=== PATIENT | female | born 1995 | race Caucasian/White ===

== ENCOUNTER 2019-03-16 09:32 | Emergency (ER) | payer OTHER ==
--- OUTSIDE RECORDS SUMMARY | 2019-03-16 09:34 | XMS REPORT ---
:1995 [facility] Address [address] Guo [address] [place] [id number] Care Team Providers Name Role Phone Unavailable Unavailable Unavailable Problems This patient has no known problems. Allergies, Adverse Reactions, Alerts This patient has no known allergies or adverse reactions. Medications This patient has no known medications. Encounters Start End Encounter Admission Attending Care Care Encounter Date/Time Date/Time Type Type Clinicians Facility Department ID 2019-01-06 Inpatient [facility] [id number] 06:39:00 2018-10-30 2018-10-30 Outpatient [id number] 06:23:00 06:23:00 2018-10-08 2018-10-08 Outpatient [facility] [id number] 08:21:00 08:21:00 2018-10-07 2018-10-07 Outpatient [facility]SE [facility]SE [id number] 09:43:00 09:43:00
[2019-03-16] MEDS ORDERED: NA CHLORIDE 0.9% 1,000 ML ONE ×2 (10:31→12:04)
[2019-03-16 10:40] LABS: Absolute Lymphocytes (CBC) 0.9 K/uL (0.7-4.9); Basophils % 0.5 % (0-1.3); Hematocrit 40.4 % (36.0-45.0); Lymphocytes % 10.6 % (15.3-44.8); MPV 9.9 fL (7.6-11.3); RBC Red Blood Cell Count 4.55 M/uL (3.86-4.86)
[2019-03-16] MEDS ORDERED: MORPHINE 4 MG/ML SYR ONE (10:48)
[2019-03-16] MEDS ORDERED: PROMETHAZINE 25 MG/ML VIAL ONE (10:48)
[2019-03-16 10:58] LABS: ALT/SGPT 17 U/L (12-78); AST/SGOT 12 U/L (15-37); Albumin 3.9 g/dL (3.4-5.0); Alkaline Phosphatase 69 U/L (45-117); BUN Blood Urea Nitrogen 8 mg/dL (7-18); Bicarbonate 24 mmol/L (21-32); Bilirubin Direct 0.1 mg/dL (0-0.2); Bilirubin Total 0.5 mg/dL (0.2-1.0); Glucose Level 112 mg/dL (74-106); Lipase 72 U/L (73-393); Potassium 3.2 mmol/L (3.5-5.1); Protein, Total 7.4 g/dL (6.4-8.2); Sodium Level 142 mmol/L (136-145)
[2019-03-16 11:19] LABS: Urine Blood 1+ (NEG); Urine Glucose NEGATIVE (NEG); Urine Protein TRACE (NEG); Urine pH 5.5 (5.0-7.0)
--- NOTE | 2019-03-16 11:27 | RAD REPORT ---
EXAM DESCRIPTION: CT - Stone Protocol - 03/16/2019 11:09 am CLINICAL HISTORY: Abdominal pain. Right lower quadrant pain COMPARISON: None. TECHNIQUE: Computed axial tomography of the abdomen pelvis was obtained without oral or IV contrast. Lack of IV and oral contrast limits evaluation of solid organs, bowel, and vessels. Coronal reformat jaiden images were obtained and reviewed. All CT scans are performed using dose optimization technique as appropriate and may include automated exposure control or mA/KV adjustment according to patient size. FINDINGS: A renal calculus is not seen. 1 millimeter calculus distal right ureter. Mild right hydron ephrosis The liver, spleen, pancreas and adrenals appear grossly normal There is no evidence of diverticulitis. The appendix appears normal IMPRESSION: 1 millimeter calculus distal right ureter resulting in mild right hydronephrosis
[2019-03-16] MEDS ORDERED: KETOROLAC 30 MG/ML INJ ONE (11:45)
[2019-03-16] MEDS ORDERED: MORPHINE 2 MG/ML SYR ONE (11:45)
[2019-03-16] MEDS ORDERED: KCL 20 MEQ/100 mL IVPB 20 MEQ/100 ML BAG IV ONE (12:04)
--- NOTE | 2019-03-16 12:34 | ER ---
Nurse's Notes [facility] Name: Aura Mcintyre Age: 24 yrs Sex: Female : 1995 Arrival Date: 03/16/2019 Time: 09:41 Bed 6 Private MD: Diagnosis: Hydronephrosis with renal and ureteral calculous obstruction;Dehydration;Hypokalemia Presentation: 03/16 09:56 Presenting complaint: Patient states: right lower back pain, nausea and vomiting since la1 early this morning. Transition of care: patient was not received from another setting of care. Onset of symptoms was March 16, 2019. Risk Assessment: Do you want to hurt yourself or someone else? Patient reports no desire to harm self or others. Initial Sepsis Screen: Does the patient meet any 2 criteria? No. Patient's initial sepsis screen is negative. Does the patient have a suspected source of infection? No. Patient's initial sepsis screen is negative. Care prior to arrival: None. 09:56 Method Of Arrival: Ambulatory la1 09:56 Acuity: SHEKHAR 3 la1 Triage Assessment: 09:58 General: Appears in no apparent distress. uncomfortable, Behavior is calm, cooperative, hj appropriate for age. Pain: Complains of pain in back. Musculoskeletal: Circulation, motion, and sensation intact. 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 - Social history:: Smoking status: Patient/guardian denies using tobacco. - Ebola Screening: : No symptoms or risks identified at this time. Screenin:58 Abuse screen: Denies threats or abuse. Denies injuries from another. Nutritional hj screening: No deficits noted. Tuberculosis screening: No symptoms or risk factors identified. Fall Risk None identified. Assessment: 12:37 Reassessment: awaiting fluids and Potassium IV to be done;. hj 13:16 Reassessment: fluids and potassium IV still running;. hj Vital Signs: 09:55 BP 143 / 77; Pulse 99; Resp 16; Temp 97.2; Pulse Ox 100% on R/A; Weight 88.45 kg; la1 Height 5 ft. 3 in. (160.02 cm); 11:01 BP 142 / 75; Pulse 98; Resp 18; Pulse Ox 100% on R/A; hj 12:08 BP 138 / 75; Pulse 85; Resp 18; Pulse Ox 100% on R/A; hj 09:55 Body Mass Index 34.54 (88.45 kg, 160.02 cm) la1 ED Course: 09:41 Patient arrived in ED. mr 09:48 Maryann Sharma, BILLY [facility]. snw 09:48 Gera Knight MD is Attending Physician. snw 09:55 Arm band placed on right wrist. la1 09:56 Triage completed. la1 09:58 Elmo Ramos, VISHNU is Primary Nurse. hj 09:58 Patient has correct armband on for positive identification. Bed in low position. Call hj light in reach. Side rails up X 1. Adult w/ patient. 11:10 CT completed. Patient tolerated procedure well. Patient moved back from CT. bq 11:11 CT Stone Protocol In Process Unspecified. EDMS 11:48 Inserted saline lock: 22 gauge in left antecubital area, using aseptic technique. hj Administered Medications: 10:30 Drug: NS 0.9% 1000 ml Route: IV; Rate: 1 bolus; Site: right antecubital; bp 13:18 Follow up: IV Status: Completed infusion; IV Intake: 1000ml hj 10:45 Drug: morphine 4 mg Route: IVP; Site: right antecubital; hj 10:57 Follow up: Response: No adverse reaction; Pain is decreased hj 10:45 Drug: Phenergan 6.25 mg Route: IVP; Site: right antecubital; hj 10:57 Follow up: Response: No adverse reaction hj 11:41 Drug: TORadol - Ketorolac 15 mg Route: IVP; Site: right antecubital; hj 13:18 Follow up: Response: No adverse reaction; Pain is decreased hj 11:41 Drug: morphine 2 mg Route: IVP; Site: right antecubital; hj 13:18 Follow up: Response: No adverse reaction hj 11:49 Drug: Potassium Chloride 20 mEq Route: IV; Rate: calculated rate; Site: left hj antecubital; 13:17 Follow up: IV Status: Infusion continued 11:49 Drug: NS 0.9% 1000 ml Route: IV; Rate: 1 bolus; Site: left antecubital; hj 13:17 Follow up: IV Status: Completed infusion; IV Intake: 1000ml hj Intake: 13:17 IV: 1000ml; Total: 1000ml. hj 13:18 IV: 1000ml; Total: 2000ml. hj Outcome: 12:33 Discharge ordered by . madi 14:01 Patient left the ED. hb Signatures: Dispatcher [employer] EDMS Maryann Sharma, SENIOR PARALEGAL-C SENIOR PARALEGAL-Csnw EduardoKavita mr Johny, Dheeraj Nix RN RN laElmo Whitlock RN RN hj Baxter, Heather, RN RN Layo Slaughter, RN RN bp
--- NOTE | 2019-03-16 12:35 | EDPHYS ---
Physician Documentation [facility] Name: Aura Mcintyre Age: 24 yrs Sex: Female : 1995 Arrival Date: 03/16/2019 Time: 09:41 Bed 6 Private MD: ED Physician Gera Knight HPI: 03/16 11:22 This 24 yrs old Female presents to ER via Ambulatory with complaints of snw Abdominal pain, Back Pain, Nausea. 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 - Social history:: Smoking status: Patient/guardian denies using tobacco. - Ebola Screening: : No symptoms or risks identified at this time. ROS: 11:21 Constitutional: Negative for fever, chills, and weight loss, Eyes: Negative for injury, snw pain, redness, and discharge, ENT: Negative for injury, pain, and discharge, Neck: Negative for injury, pain, and swelling, Cardiovascular: Negative for chest pain, palpitations, and edema, Respiratory: Negative for shortness of breath, cough, wheezing, and pleuritic chest pain, Abdomen/GI: Positive for abdominal pain, nausea, vomiting, negative for diarrhea, and constipation, Back: Negative for injury and pain, : Negative for injury, bleeding, discharge, and swelling, MS/Extremity: Negative for injury and deformity, Skin: Negative for injury, rash, and discoloration, Neuro: Negative for headache, weakness, numbness, tingling, and seizure. Exam: 11:19 Constitutional: This is a well developed, well nourished patient who is awake, alert, snw and in no acute distress. Head/Face: Normocephalic, atraumatic. Eyes: Pupils equal round and reactive to light, extra-ocular motions intact. Lids and lashes normal. Conjunctiva and sclera are non-icteric and not injected. Cornea within normal limits. Periorbital areas with no swelling, redness, or edema. ENT: Nares patent. No nasal discharge, no septal abnormalities noted. Tympanic membranes are normal and external auditory canals are clear. Oropharynx with no redness, swelling, or masses, exudates, or evidence of obstruction, uvula midline. Mucous membranes moist. Neck: Trachea midline, no thyromegaly or masses palpated, and no cervical lymphadenopathy. Supple, full range of motion without nuchal rigidity, or vertebral point tenderness. No Meningismus. Chest/axilla: Normal chest wall appearance and motion. Nontender with no deformity. No lesions are appreciated. Cardiovascular: Regular rate and rhythm with a normal S1 and S2. No gallops, murmurs, or rubs. Normal PMI, no JVD. No pulse deficits. Respiratory: Lungs have equal breath sounds bilaterally, clear to auscultation and percussion. No rales, rhonchi or wheezes noted. No increased work of breathing, no retractions or nasal flaring. Back: No spinal tenderness. No costovertebral tenderness. Full range of motion. MS/ Extremity: Pulses equal, no cyanosis. Neurovascular intact. Full, normal range of motion. Neuro: Awake and alert, GCS 15, oriented to person, place, time, and situation. Cranial nerves II-XII grossly intact. Motor strength 5/5 in all extremities. Sensory grossly intact. Cerebellar exam normal. Normal gait. Psych: Awake, alert, with orientation to person, place and time. Behavior, mood, and affect are within normal limits. 11:19 Abdomen/GI: Inspection: abdomen appears normal, Bowel sounds: diminished, Palpation: moderate abdominal tenderness, severe abdominal tenderness, in the right lower quadrant, Indicators: McBurney's point is tender, Obturator sign is positive, Psoas sign is positive. 11:19 Back: + radiated pain to right low back. 11:19 Neuro: Orientation: is normal. 11:19 Special observations: severe pain, tearful on exam. 11:21 Skin: Appearance: Color: pale. snw Vital Signs: 09:55 BP 143 / 77; Pulse 99; Resp 16; Temp 97.2; Pulse Ox 100% on R/A; Weight 88.45 kg; la1 Height 5 ft. 3 in. (160.02 cm); 11:01 BP 142 / 75; Pulse 98; Resp 18; Pulse Ox 100% on R/A; hj 12:08 BP 138 / 75; Pulse 85; Resp 18; Pulse Ox 100% on R/A; hj 09:55 Body Mass Index 34.54 (88.45 kg, 160.02 cm) la1 MDM: 09:57 Patient medically screened. az 12:34 Data reviewed: vital signs, nurses notes. Data interpreted: Pulse oximetry: on room air snw is 100 %. Interpretation: normal. Counseling: I had a detailed discussion with the patient and/or guardian regarding: the historical points, exam findings, and any diagnostic results supporting the discharge/admit diagnosis, the presence of at least one elevated blood pressure reading (>120/80) during this emergency department visit, lab results, radiology results, the need for outpatient follow up, to return to the emergency department if symptoms worsen or persist or if there are any questions or concerns that arise at home. Special discussion: I have referred the patient to see his PCP for further evaluation of high blood pressure. Based on the history and exam findings, there is no indication for further emergent testing or inpatient evaluation. I discussed with the patient/guardian the need to see the primary care provider for further evaluation of the symptoms. I discussed with the patient/guardian the need to see the urologist for further evaluation of the symptoms. 14:26 ED course: T#3 #20 called to [facility] as pt cannot take Diclofenac. 03/16 10:17 Order name: Urine Culture 03/16 10:17 Order name: Urine Microscopic Only; Complete Time: 13:31 formerly [facility] 03/16 10:18 Order name: Urine Dipstick--Ancillary (enter results); Complete Time: 11:24 03/16 10:18 Order name: Urine --Ancillary (enter results); Complete Time: 11:24 03/16 10:21 Order name: Basic Metabolic Panel; Complete Time: 11: formerly [facility] 03/16 10:21 Order name: CBC with Diff 03/16 10:21 Order name: Creatinine for Radiology; Complete Time: 10:56 formerly [facility] 03/16 10:21 Order name: Hepatic Function; Complete Time: 11: formerly [facility] 03/16 10:21 Order name: Lipase; Complete Time: 11: formerly [facility] 03/16 10:44 Order name: CT Stone Protocol; Complete Time: 11:40 formerly [facility] 03/16 10:17 Order name: Urine Test (obtain specimen); Complete Time: 10:w 03/16 10:17 Order name: Urine Dipstick-Ancillary (obtain specimen); Complete Time: 10:03/16 10:21 Order name: IV Saline Lock; Complete Time: 03/16 10:21 Order name: Labs collected and sent; Complete Time: 10: snw Administered Medications: 10:30 Drug: NS 0.9% 1000 ml Route: IV; Rate: 1 bolus; Site: right antecubital; bp 13:18 Follow up: IV Status: Completed infusion; IV Intake: 1000ml hj 10:45 Drug: morphine 4 mg Route: IVP; Site: right antecubital; hj 10:57 Follow up: Response: No adverse reaction; Pain is decreased hj 10:45 Drug: Phenergan 6.25 mg Route: IVP; Site: right antecubital; hj 10:57 Follow up: Response: No adverse reaction hj 11:41 Drug: TORadol - Ketorolac 15 mg Route: IVP; Site: right antecubital; hj 13:18 Follow up: Response: No adverse reaction; Pain is decreased hj 11:41 Drug: morphine 2 mg Route: IVP; Site: right antecubital; hj 13:18 Follow up: Response: No adverse reaction hj 11:49 Drug: Potassium Chloride 20 mEq Route: IV; Rate: calculated rate; Site: left hj antecubital; 13:17 Follow up: IV Status: Infusion continued hj 11:49 Drug: NS 0.9% 1000 ml Route: IV; Rate: 1 bolus; Site: left antecubital; hj 13:17 Follow up: IV Status: Completed infusion; IV Intake: 1000ml hj Disposition: 03/17 09:20 Co-signature as Attending Physician, Gera LOPEZ I agree with the assessment and az plan of care. Disposition: 03/16/19 12:33 Discharged to Home. Impression: Hydronephrosis with renal and ureteral calculous obstruction, Dehydration, Hypokalemia. - Condition is Stable. - Discharge Instructions: Kidney Stones, Hydronephrosis, Dietary Guidelines to Help Prevent Kidney Stones, Rehydration, Adult. - Prescriptions for Cipro 500 mg Oral Tablet - take 1 tablet by ORAL route every 12 hours for 7 days; 14 tablet. Diclofenac Sodium 75 mg Oral Tablet Sustained Release - take 1 tablet by ORAL route 2 times per day; 30 tablet. promethazine 25 mg Oral Tablet - take 1 tablet by ORAL route every 6 hours As needed; 20 tablet. - Work release form, Medication Reconciliation Form, Thank You Letter, Antibiotic Education, Prescription Opioid Use form. - Follow up: Private Physician; When: 2 - 3 days; Reason: Recheck today's complaints, Continuance of care, Re-evaluation by your physician. Follow up: Emergency Department; When: As needed; Reason: Worsening of condition. Signatures: Dispatcher [employer] EDMS Gera Knight MD MD cha Therrien, Shelly, ORAL AND MAXILLOFACIAL SURGERY RESIDENT-C ORAL AND MAXILLOFACIAL SURGERY RESIDENT-Csnw Dheeraj Pacheco RN RN la1 Elmo Ramos RN RN hj Garima Sanchez RN RN Layo Slaughter RN RN bp Corrections: (The following items were deleted from the chart) 03/16 14:01 12:33 03/16/2019 12:33 Discharged to Home. Impression: Hydronephrosis with renal and hb ureteral calculous obstruction; Dehydration; Hypokalemia. Condition is Stable. Discharge Instructions: Kidney Stones, Hydronephrosis, Dietary Guidelines to Help Prevent Kidney Stones, Rehydration, Adult. Prescriptions for Cipro 500 mg Oral Tablet - take 1 tablet by ORAL route every 12 hours for 7 days; 14 tablet, Diclofenac Sodium 75 mg Oral Tablet Sustained Release - take 1 tablet by ORAL route 2 times per day; 30 tablet, promethazine 25 mg Oral Tablet - take 1 tablet by ORAL route every 6 hours As needed; 20 tablet. and Forms are Work release form, Medication Reconciliation Form, Thank You Letter, Antibiotic Education, Prescription Opioid Use. Follow up: Private Physician; When: 2 - 3 days; Reason: Recheck today's complaints, Continuance of care, Re-evaluation by your physician. Follow up: Emergency Department; When: As needed; Reason: Worsening of condition. snw
[2019-03-16 13:25] LABS: Urine Bacteria <20 /HPF (<20); Urine Culture Reflex Order NOT NEEDED; Urine Mucus 1+ /HPF (NONE SEEN)
[2019-03-16 14:25] VITALS: TEMP 97.2; O2SAT 100
[2019-03-16 14:27] VITALS: BP 138/75
== END 2019-03-16 14:01 | disposition home or self-care (01) ==
LOC: ER 09:32
DX: N13.2 Hydronephrosis with renal and ureteral calculous obstruction (principal); E86.0 Dehydration; E87.6 Hypokalemia; Z88.0 Allergy status to penicillin
CPT/HCPCS: 96365; 96361; 87088; 85025; 87086; 80048; 36415; 81025; 80076; 83690; 76377; 74176; 96375; 99284; J2550; J2270; J7030 ×2; 81003; 81015

== ENCOUNTER 2022-08-30 19:23 | Emergency (ER) | payer OTHER, SELFPAY ==
--- OUTSIDE RECORDS SUMMARY | 2022-08-30 19:32 | XMS REPORT | Continuity of Care Document ---
:1995 Author Organization [facility] t Address [facility] Guo [address] [place] [id number] Care Team Providers Name Role Phone Unavailable Unavailable Unavailable Problems This patient has no known problems. Allergies, Adverse Reactions, Alerts This patient has no known allergies or adverse reactions. Medications This patient has no known medications. Procedures This patient has no known procedures. Encounters Start End Encounter Admission Attending Care Care Encounter Source Date/Time Date/Time Type Type Clinicians Facility Department ID 2019-01-06 Inpatient [id number] [facility] [facility] 2018-10-30 2018-10-30 Outpatient MHSE [facility]SE [id number] MH 06:23:00 06:23:[address] [facility] 2018-10-08 2018-10-08 Outpatient MHSE [facility]SE [id number] MH 08:21:00 08:21:[address] [facility] 2018-10-07 2018-10-07 Outpatient [facility]SE [facility] [id number] [facility] Results This patient has no known results.
[2022-08-30] MEDS ORDERED: LEVALBUTEROL 1.25 MG/3 ML NEB ONE (20:04)
[2022-08-30] MEDS ORDERED: METHYLPREDNISOLONE 125 MG INJ ONE (20:04)
[2022-08-30] MEDS ORDERED: NA CHLORIDE 0.9% 1,000 ML ONE (20:26)
[2022-08-30 20:29] LABS: Absolute Lymphocytes (CBC) 1.9 K/uL (0.7-4.9); Hematocrit 39.7 % (36.0-45.0); Lymphocytes % 21.8 % (15.3-44.8); MCV 89.8 fL (80-100); MPV 7.7 fL (7.6-11.3); RBC Red Blood Cell Count 4.43 M/uL (3.86-4.86)
[2022-08-30 20:32] LABS: Urine Blood Negative (Negative); Urine Glucose Negative (Negative); Urine Protein Negative (Negative); Urine Specific Gravity 1.015 (1.005-1.030)
[2022-08-30 20:48] LABS: BUN Blood Urea Nitrogen 14 mg/dL (7-18); Bicarbonate 28 mmol/L (21-32); Glomerular Filtration Rate 104 ml/min (=/>90); Glucose Level 105 mg/dL (74-106); Potassium 4.1 mmol/L (3.5-5.1); Sodium Level 138 mmol/L (136-145)
[2022-08-30 21:18] LABS: Troponin High Sensitivity < 3.0 pg/mL (<58.9)
--- NOTE | 2022-08-30 21:19 | RAD REPORT ---
EXAM DESCRIPTION: RAD - Chest Single View - 08/30/2022 8:46 pm CLINICAL HISTORY: Chest pain COMPARISON: CHEST PA AND LAT 2 VIEW dated 02/18/2014; CHEST PA AND LAT 2 VIEW dated 04/09/2012 FINDINGS: Lines: None. Lungs: No evidence of edema or pneumonia. Pleural: No significant pleural effusions or pneumothorax. Cardiac: The heart size is within normal limits. Mediastinum: Within normal limits. Bones: No acute fractures. Other: None IMPRESSION: No acute cardiopulmonary disease.
[2022-08-30 22:07] LABS: Urine Specific Gravity/Preg 1.015 (1.005-1.030)
--- NOTE | 2022-08-30 23:14 | EDPHYS ---
Physician Documentation [facility] Name: Aura Mcintyre Age: 27 yrs Sex: Female : 1995 Arrival Date: 08/30/2022 Time: 19:27 Bed 6 Private MD: ED Physician Surya Camacho HPI: 08/31 00:17 This 27 yrs old Female presents to ER via Ambulatory with complaints of Chest Pain, kdr Cough, Palpitations. 00:17 Patient states that she has had cough congestion palpitations and generalized anxiety. kdr She has had the symptoms for some months. She was put on propranolol for rate control and palpitations however has not seem to work well. She her dosing was 10 mg twice daily. She is also has some minor skin lesions behind her right ear and under her chin. They do appear to be slightly crusty most likely a fungal type infection.. Onset: The symptoms/episode began/occurred The palpitations cough and congestion have been ongoing for some time. There does not appear to be any acute change in the character or quality or quantity of the palpitations. On the other hand they simply appear to be transient and not resolving and not controlled. The patient otherwise has no focal complaints. Does not appear to be acutely ill. She does not require emergent intervention and is not completely nontoxic-appearing. Severity of symptoms: At their worst the symptoms were mild moderate just prior to arrival, in the emergency department the symptoms have improved moderately. The patient has experienced similar episodes in the past, chronically. The patient has been recently seen by a physician: Patient has had intermittent visits with her PCP and is on numerous psychiatric medications as well as the propranolol previously mentioned. 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 - Social history:: Smoking status: Patient denies any tobacco usage or history of. ROS: 08/31 00:17 Constitutional: Negative for fever, chills, and weight loss, Eyes: Negative for injury, kdr pain, redness, and discharge, Neck: Negative for injury, pain, and swelling, Abdomen/GI: Negative for abdominal pain, nausea, vomiting, diarrhea, and constipation, Back: Negative for injury and pain, : Negative for injury, bleeding, discharge, and swelling, MS/Extremity: Negative for injury and deformity, Skin: Negative for injury, rash, and discoloration, Neuro: Negative for headache, weakness, numbness, tingling, and seizure activity. Psych: Negative for depression, anxiety, suicide ideation, homicidal ideation, and hallucinations, Allergy/Immunology: Negative for hives, rash, and allergies, Endocrine: Negative for neck swelling, polydipsia, polyuria, polyphagia, and marked weight changes, Hematologic/Lymphatic: Negative for swollen nodes, abnormal bleeding, and unusual bruising. Cardiovascular: Positive for chest pain, with cough, palpitations. Respiratory: Positive for cough, with no reported sputum, shortness of breath, Negative for dyspnea on exertion, hemoptysis, orthopnea, pleurisy, sputum production, wheezing. Exam: 00:17 Constitutional: This is a well developed, well nourished patient who is awake, alert, kdr and in no acute distress. Head/Face: Normocephalic, atraumatic. Eyes: Pupils equal round and reactive to light, extra-ocular motions intact. Lids and lashes normal. Conjunctiva and sclera are non-icteric and not injected. Cornea within normal limits. Periorbital areas with no swelling, redness, or edema. Neck: Trachea midline, no thyromegaly or masses palpated, and no cervical lymphadenopathy. Supple, full range of motion without nuchal rigidity, or vertebral point tenderness. No Meningismus. Chest/axilla: Normal chest wall appearance and motion. Nontender with no deformity. No lesions are appreciated. Cardiovascular: Regular rate and rhythm with a normal S1 and S2. No gallops, murmurs, or rubs. Normal PMI, no JVD. No pulse deficits. Respiratory: Lungs have equal breath sounds bilaterally, clear to auscultation and percussion. No rales, rhonchi or wheezes noted. No increased work of breathing, no retractions or nasal flaring. Abdomen/GI: Soft, non-tender, with normal bowel sounds. No distension or tympany. No guarding or rebound. No evidence of tenderness throughout. Back: No spinal tenderness. No costovertebral tenderness. Full range of motion. MS/ Extremity: Pulses equal, no cyanosis. Neurovascular intact. Full, normal range of motion. Neuro: Awake and alert, GCS 15, oriented to person, place, time, and situation. Cranial nerves II-XII grossly intact. Motor strength 5/5 in all extremities. Sensory grossly intact. Cerebellar exam normal. Normal gait. Psych: Awake, alert, with orientation to person, place and time. Behavior, mood, and affect are within normal limits. 00:17 Skin: lesion(s), noted, and can be described as erythematous, flat, tender, ulcerated, violaceous, located on the right ear and submental area. Vital Signs: 08/30 20:03 BP 110 / 74; Pulse 96; Resp 19; Temp 98.2; Pulse Ox 98% ; Weight 77.11 kg; Height 5 ft. kd3 3 in. (160.02 cm); 23:00 BP 114 / 71; Pulse 80; Resp 16; Pulse Ox 100% on R/A; jb4 20:03 Body Mass Index 30.11 (77.11 kg, 160.02 cm) 3 MDM: 23:13 Patient medically screened. kdr 08/31 00:17 Data reviewed: vital signs, nurses notes, lab test result(s), EKG, radiologic studies. kdr Consideration of Admission/Observation Patient was admitted/placed on observation. 08/30 20:10 Order name: Basic Metabolic Panel [facility] 08/30 20:10 Order name: CBC with Diff [facility] 08/30 20:10 Order name: Troponin HS [facility] 08/30 20:30 Order name: CBC with Automated Diff; Complete Time: 22: [facility] 08/30 20:32 Order name: Urine --Ancillary (enter results); Complete Time: 22: 08/30 20:32 Order name: Urine Dipstick-Ancillary; Complete Time: 22:09 [facility] 08/30 20:10 Order name: XRAY Chest (1 view) [facility] 08/30 20:10 Order name: EKG; Complete Time: 20:11 [facility] 08/30 21:19 Order name: Basic Metabolic Panel; Complete Time: 22:09 [facility] 08/30 21:19 Order name: Troponin High Sensitivity; Complete Time: 22: [facility] 08/30 21:20 Order name: RAD; Complete Time: 22: [facility] 08/30 20:09 Order name: EKG - Nurse/Tech; Complete Time: 20:09 [facility] 08/30 20:10 Order name: Cardiac monitoring; Complete Time: 23:14 3 08/30 20:10 Order name: IV Saline Lock; Complete Time: 20:20 3 08/30 20:10 Order name: Labs collected and sent; Complete Time: 20:20 3 08/30 20:10 Order name: O2 Per Protocol; Complete Time: 23: 3 08/30 20:10 Order name: O2 Sat Monitoring; Complete Time: 23:14 3 08/30 20:23 Order name: Urine Dipstick-Ancillary (obtain specimen); Complete Time: :47 3 08/30 20:23 Order name: Urine Test (obtain specimen); Complete Time: :47 kd3 Administered Medications: 08/30 20:24 Drug: NS 0.9% 1000 ml Route: IV; Rate: 1 bolus; Site: right antecubital; kd3 21:51 Follow up: IV Status: Completed infusion; IV Intake: 1000ml kd3 23:36 Drug: INDeral (propranolol) 20 mg Route: PO; jb4 23:39 Follow up: Response: Medication administered at discharge. jb4 Disposition Summary: 08/30/22 23:13 Discharge Ordered Location: Home kdr Problem: new kdr Symptoms: have improved kdr Condition: Stable kdr Diagnosis - Palpitations kdr - Anxiety disorder, unspecified kdr - Chest pain, unspecified kdr Followup: kdr - With: Private Physician - When: 2 - 3 days - Reason: If symptoms return, Further diagnostic work-up, Recheck today's complaints, Continuance of care, Re-evaluation by your physician Discharge Instructions: - Discharge Summary Sheet kdr - Nonspecific Chest Pain, Adult kdr - Nonspecific Chest Pain, Adult, Goin-wy-[id number] kdr - Panic Attack, Vjls-qg-Qenq kdr - Palpitations, Jffa-aq-Sjzi kdr - Generalized Anxiety Disorder, Adult kdr - Managing Anxiety, Adult kdr Forms: - Medication Reconciliation Form kdr - Thank You Letter kdr - Antibiotic Education kdr - Prescription Opioid Use kdr Prescriptions: - Propranolol 20 mg Oral Tablet - take 1 tablet by ORAL route every 12 hours; 20 tablet; Refills: 0, Product kdr Selection Permitted - Nystatin-Triamcinolone 100,000-0.1 unit/g-% Topical Cream - apply 1 application by TOPICAL route 2 times per day; 1 tube; Refills: 0, kdr Product Selection Permitted Signatures: Dispatcher [employer] Surya Simons MD MD kdr Mckinley Chavez, RN RN jb4 Kennedi Bailey RN RN kd3 Corrections: (The following items were deleted from the chart) 22:09 21:48 URINE --ANCILLARY+[email or web address].BRZ ordered. EDMS EDMS
--- NOTE | 2022-08-30 23:14 | ER ---
Nurse's Notes [facility] Name: Aura Mcintyre Age: 27 yrs Sex: Female : 1995 Arrival Date: 08/30/2022 Time: 19:27 Bed 6 Private MD: Diagnosis: Palpitations;Anxiety disorder, unspecified;Chest pain, unspecified Presentation: 08/30 20:03 Chief complaint: Patient states: I was having some deep chest pain and i have been kd3 coughing a lot and i have had little pink spots in my sputum. I know i have a lot of anxiety and i know that it could just be that but the little pink spots make me think it is something else. I also haven't had a solid bowl movement in over a month. I do have a history of IBS and my doctor thinks its due to my stress but i feel very weak. Coronavirus screen: Vaccine status: Patient reports being unvaccinated. Ebola Screen: No symptoms or risks identified at this time. Initial Sepsis Screen: Does the patient meet any 2 criteria? No. Patient's initial sepsis screen is negative. Does the patient have a suspected source of infection? No. Patient's initial sepsis screen is negative. Risk Assessment: Do you want to hurt yourself or someone else? Patient reports no desire to harm self or others. Onset of symptoms was August 30, 2022. 20:03 Method Of Arrival: Ambulatory kd3 20:03 Acuity: SHEKHAR 3 kd3 Triage Assessment: 20:06 General: Appears uncomfortable, Behavior is calm, cooperative. Pain: Complains of pain kd3 in chest. Cardiovascular: Patient's skin is warm and dry. 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 - Social history:: Smoking status: Patient denies any tobacco usage or history of. Screenin:39 [facility] ED Fall Risk Assessment (Adult) History of falling in the last 3 months, jb4 including since admission No falls in past 3 months (0 pts) Confusion or Disorientation No (0 pts) Score/Fall Risk Level 0 - 2 = Low Risk. Abuse screen: Denies threats or abuse. Nutritional screening: No deficits noted. Tuberculosis screening: No symptoms or risk factors identified. Assessment: 22:45 General: Appears in no apparent distress. comfortable, Behavior is calm, cooperative, jb4 appropriate for age. Pain: Complains of pain in chest Pain does not radiate. Pain currently is 4 out of 10 on a pain scale. Quality of pain is described as aching. Neuro: Level of Consciousness is awake, alert, obeys commands, Oriented to person, place, time, situation. Cardiovascular: Patient's skin is warm and dry. Respiratory: Reports cough that is persistent since 1 month ago Airway is patent Respiratory effort is even, unlabored. GI: No signs and/or symptoms were reported involving the gastrointestinal system. : No signs and/or symptoms were reported regarding the genitourinary system. EENT: No signs and/or symptoms were reported regarding the EENT system. Derm: Skin is intact, Skin is pink, warm \T\ dry. Musculoskeletal: Circulation, motion, and sensation intact. Range of motion: intact in all extremities. 23:39 Reassessment: Patient appears in no apparent distress at this time. Patient and/or jb4 family updated on plan of care and expected duration. Pain level reassessed. Patient is alert, oriented x 3, equal unlabored respirations, skin warm/dry/pink. Vital Signs: 20:03 BP 110 / 74; Pulse 96; Resp 19; Temp 98.2; Pulse Ox 98% ; Weight 77.11 kg; Height 5 ft. kd3 3 in. (160.02 cm); 23:00 BP 114 / 71; Pulse 80; Resp 16; Pulse Ox 100% on R/A; jb4 20:03 Body Mass Index 30.11 (77.11 kg, 160.02 cm) kd3 ED Course: 19:27 Patient arrived in ED. rg4 19:31 Surya Camacho MD is Attending Physician. kdr 20:06 Triage completed. kd3 20:06 Arm band placed on right wrist. kd3 20:09 EKG completed in triage. Results shown to MD. kd3 20:20 Basic Metabolic Panel Sent. kd3 20:20 CBC with Diff Sent. kd3 20:20 Troponin HS Sent. kd3 21:04 Inserted saline lock: 20 gauge in right antecubital area, using aseptic technique. kd3 Blood collected. 22:45 Mckinley Chavez, RN is Primary Nurse. jb4 23:39 Patient has correct armband on for positive identification. Placed in gown. Bed in low jb4 position. Call light in reach. Side rails up X 1. Client placed on continuous cardiac and pulse oximetry monitoring. NIBP monitoring applied. 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 23:39 No provider procedures requiring assistance completed. IV discontinued, intact, jb4 bleeding controlled, No redness/swelling at site. Pressure dressing applied. Patient maintains SpO2 saturation greater than 95% on room air. Administered Medications: 20:24 Drug: NS 0.9% 1000 ml Route: IV; Rate: 1 bolus; Site: right antecubital; kd3 21:51 Follow up: IV Status: Completed infusion; IV Intake: 1000ml kd3 23:36 Drug: INDeral (propranolol) 20 mg Route: PO; jb4 23:39 Follow up: Response: Medication administered at discharge. jb4 Intake: 21:51 IV: 1000ml; Total: 1000ml. kd3 Outcome: 23:13 Discharge ordered by . kdr 23:39 Discharged to home ambulatory. jb4 23:39 Condition: stable 23:39 Discharge instructions given to patient, Instructed on discharge instructions, follow up and referral plans. medication usage, Demonstrated understanding of instructions, follow-up care, medications, Prescriptions given X 2. 23:40 Patient left the ED. jb4 Signatures: Surya Camacho MD MD kdr Garcia, Rubi 4 Mckinley Chavez, RN RN jb4 Kennedi Bailey RN RN kd3
[2022-08-30] MEDS ORDERED: PROPRANOLOL HCL 10 MG TAB ONE (23:35)
[2022-08-31 00:45] VITALS: TEMP 97.8
[2022-08-31 00:48] VITALS: BP 127/72; O2SAT 99
--- NOTE | 2022-08-31 11:52 | EKG ---
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
== END 2022-08-30 23:40 | disposition home or self-care (01) ==
LOC: ER 19:23
DX: R07.9 Chest pain, unspecified (principal); F41.9 Anxiety disorder, unspecified; R00.2 Palpitations
CPT/HCPCS: 36415; 71045; 80048; 81003; 81025; 84484; 85025; 93005; J2930; J7030; J7614

== ENCOUNTER 2023-05-25 23:11 | Emergency (ER) | payer OTHER, SELFPAY ==
--- OUTSIDE RECORDS SUMMARY | 2023-05-25 23:14 | XMS REPORT | Continuity of Care Document ---
:1995 Author Organization [facility] t Address [address] [facility] [address] [place] [id number] Care Team Providers Name Role Phone [email or web address] Attending Clinician Unavailable [email or web address] Admitting Clinician Unavailable Problems This patient has no known problems. Allergies, Adverse Reactions, Alerts This patient has no known allergies or adverse reactions. Medications This patient has no known medications. Procedures This patient has no known procedures. Encounters Start End Encounter Admission Attending Care Care Encounter Source Date/Time Date/Time Type Type Clinicians Facility Department ID 2019-01-06 Inpatient MHSE [id number] [facility] 06:39:[address] [facility] 2023-05-11 2023-05-11 Outpatient [email or web address] PRIV PRIV [id number] [facility] 00:00:00 00:00:00 [facility] [id number] Medic al 2018-10-30 2018-10-30 Outpatient MHSE [id number] [facility] 06:23:00 06:23:[address] [facility] 2018-10-08 2018-10-08 Outpatient MHSE [id number] MH 08:21:00 08:21:[address] [facility] 2018-10-07 2018-10-07 Outpatient MHSE [id number] [facility] 09:43:[facility] Results This patient has no known results.
[2023-05-26 00:40] LABS: Absolute Lymphocytes (CBC) 2.6 K/uL (0.7-4.9); Hematocrit 43.6 % (36.0-45.0); Lymphocytes % 21.8 % (15.3-44.8); MCV 88.1 fL (80-100); MPV 8.1 fL (7.6-11.3); Platelets 307 thou/uL (152-406); RBC Red Blood Cell Count 4.95 M/uL (3.86-4.86)
[2023-05-26] MEDS ORDERED: NA CHLORIDE 0.9% 1,000 ML ONE (00:57)
[2023-05-26] MEDS ORDERED: KETOROLAC 30 MG/ML INJ ONE (00:57)
[2023-05-26] MEDS ORDERED: ONDANSETRON 4 MG/2 ML VIAL ONE (00:57)
[2023-05-26] MEDS ORDERED: FAMOTIDINE 20 MG/2 ML VIAL IV ONE (00:57)
[2023-05-26 00:58] LABS: Albumin 3.8 g/dL (3.4-5.0); Bilirubin Total 0.3 mg/dL (0.2-1.0); Protein, Total 7.6 g/dL (6.4-8.2)
[2023-05-26] MEDS ORDERED: MORPHINE 4 MG/ML SYR ONE (04:30)
--- NOTE | 2023-05-26 06:30 | ER ---
Nurse's Notes [facility] Name: Aura Mcintyre Age: 28 yrs Sex: Female : 1995 Arrival Date: 05/25/2023 Time: 23:11 Bed 14 Private MD: Diagnosis: Abdominal pain, unspecified Presentation: 05/26 00:02 Chief complaint: Patient states: Been having stomach pain for the last 2 weeks but vc1 today it is really bad. Coronavirus screen: Vaccine status: Patient reports being unvaccinated. Client denies travel out of the [place] in the last 14 days. nausea, vomiting. Client presents with at least one sign or symptom that may indicate coronavirus-19. Ebola Screen: Patient negative for fever greater than or equal to 101.5 degrees Fahrenheit, and additional compatible Ebola Virus Disease symptoms Patient denies exposure to infectious person. Patient denies travel to an Ebola-affected area in the 21 days before illness onset. No symptoms or risks identified at this time. Initial Sepsis Screen: Does the patient meet any 2 criteria? No. Patient's initial sepsis screen is negative. Does the patient have a suspected source of infection? No. Patient's initial sepsis screen is negative. Risk Assessment: Do you want to hurt yourself or someone else? Patient reports no desire to harm self or others. Onset of symptoms is unknown. 00:02 Method Of Arrival: Ambulatory vc1 00:02 Acuity: SHEKHAR 3 vc1 Triage Assessment: 00:04 General: Appears in no apparent distress. uncomfortable, ill, Behavior is cooperative, vc1 crying. Pain: Complains of pain in abdomen Pain does not radiate. Pain currently is 10 out of 10 on a pain scale. Noted to be crying, grimacing, Also complains of nausea. EENT: No deficits noted. No signs and/or symptoms were reported regarding the EENT system. Neuro: No deficits noted. Cardiovascular: No deficits noted. Respiratory: Airway is patent Respiratory effort is even, unlabored, Respiratory pattern is regular, symmetrical. GI: Reports lower abdominal pain, upper abdominal pain, nausea, vomiting. : No deficits noted. No signs and/or symptoms were reported regarding the genitourinary system. Derm: No deficits noted. No signs and/or symptoms reported regarding the dermatologic system. Musculoskeletal: No deficits noted. No signs and/or symptoms reported regarding the musculoskeletal system. 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 - Social history:: Smoking status: Patient denies any tobacco usage or history of. Screenin:41 [facility] ED Fall Risk Assessment (Adult) History of falling in the last 3 months, vc1 including since admission No falls in past 3 months (0 pts) Confusion or Disorientation No (0 pts) Intoxicated or Sedated No (0 pts) Impaired Gait No (0 pts) Mobility Assist Device Used No (0 pt) Altered Elimination No (0 pt) Score/Fall Risk Level 0 - 2 = Low Risk Oriented to surroundings, Maintained a safe environment, Educated pt \T\ family on fall prevention, incl call for assistance when getting out of bed. Abuse screen: Denies threats or abuse. Nutritional screening: No deficits noted. Tuberculosis screening: No symptoms or risk factors identified. Assessment: 02:00 Reassessment: No changes from previously documented assessment. Patient and/or family vc1 updated on plan of care and expected duration. Pain level reassessed. Patient is alert, oriented x 3, equal unlabored respirations, skin warm/dry/pink. 04:33 Reassessment: Patient and/or family updated on plan of care and expected duration. Pain vc1 level reassessed. Patient is alert, oriented x 3, equal unlabored respirations, skin warm/dry/pink. Patient states symptoms have improved. 05:00 Reassessment: Patient and/or family updated on plan of care and expected duration. Pain ha1 level reassessed. Patient is alert, oriented x 3, equal unlabored respirations, skin warm/dry/pink. 06:00 Reassessment: Patient and/or family updated on plan of care and expected duration. Pain ha1 level reassessed. Patient is alert, oriented x 3, equal unlabored respirations, skin warm/dry/pink. 07:01 Reassessment: Discharge pending UA results. mb9 Vital Signs: 00:02 BP 153 / 102; Pulse 107; Resp 20; Temp 98.4; Pulse Ox 100% ; Weight 86.18 kg; Height 5 vc1 ft. 3 in. ; Pain 10/10; 02:00 BP 111 / 73; Pulse 84; Pulse Ox 98% ; vc1 04:00 BP 111 / 77; Pulse 81; Pulse Ox 100% ; vc1 04:30 BP 117 / 77; Pulse 81; Resp 18 S; Pulse Ox 100% on R/A; ha1 06:00 BP 105 / 64; Pulse 85; Resp 18 S; Pulse Ox 100% on R/A; ha1 00:02 Body Mass Index 33.66 (86.18 kg, 160.02 cm) vc1 00:02 Pain Scale: Adult vc1 ED Course: 05/25 23:16 Patient arrived in ED. gm2 05/26 00:02 Gera Naranjo PA is PHCP. cp 00:02 Cassie Rothman is Attending Physician. cp 00:03 Triage completed. vc1 00:04 Arm band placed on right wrist. EKG completed in triage. Results shown to MD. vc1 00:35 Inserted saline lock: 20 gauge in right antecubital area, using aseptic technique. kmf Blood collected. 00:46 CMP Sent. kmf 00:46 Lipase Sent. kmf 01:21 Radiology exam delayed due to test not completed at this time. eh4 02:00 Patient has correct armband on for positive identification. Bed in low position. Call vc1 light in reach. Pulse ox on. NIBP on. 03:02 CT Abd/Pelvis - IV Contrast Only In Process Unspecified. EDMS 04:31 Orly Mijares, VISHNU is Primary Nurse. vc1 06:29 No provider procedures requiring assistance completed. ha1 07:01 Report received from VISHNU Smith. mb9 07:16 IV discontinued, intact, bleeding controlled, No redness/swelling at site. Pressure vc1 dressing applied. Administered Medications: 00:50 Drug: NS 0.9% IV 1000 ml IV at 1 bolus Per protocol; 1000 mL bolus Route: IV; Rate: 1 vc1 bolus; Site: right antecubital; 06:29 Follow up: Response: No adverse reaction; IV Status: Completed infusion; IV Intake: ha1 1000ml 00:50 Drug: Famotidine IVP 20 mg IVP once; dilute with 10 mL 0.9% NaCl; give over 2 minutes vc1 Route: IVP; Site: right antecubital; 06:29 Follow up: Response: No adverse reaction ha1 00:50 Drug: TORadol - Ketorolac IVP 15 mg IVP once Route: IVP; Site: right antecubital; vc1 00:50 Drug: Ondansetron IVP 4 mg IVP once; over 2 minutes Route: IVP; Site: right antecubital;vc1 06:29 Follow up: Response: No adverse reaction ha1 04:24 Drug: morphine IVP or IV 4 mg IVP once over 4 mins Route: IVP; Infused Over: 4 mins; vc1 Site: right antecubital; 05:00 Follow up: Response: No adverse reaction; Pain is decreased; RASS: Alert and Calm (0) ha1 Medication: 04:42 VIS not applicable for this client. vc1 Intake: 06:29 IV: 1000ml; Total: 1000ml. ha1 Outcome: 06:29 Discharge ordered by . ci 07:16 Discharged to home ambulatory, with significant other, vc1 07:16 Condition: good 07:16 Discharge instructions given to patient, Instructed on discharge instructions, follow up and referral plans. medication usage, Demonstrated understanding of instructions, follow-up care, medications, Prescriptions given X 1, 07:16 Patient left the ED. vc1 Signatures: Dispatcher [employer] EDMS Gera Naranjo PA PA cp Calcote, Vanessa, RN RN vc1 Sarah Maldonado RN RN 1 Arron Villalta [facility] Kavita Omalley RN RN mb9 IhepremaunekCassie colon Ginger 2 [address] [facility]
--- NOTE | 2023-05-26 06:30 | EDPHYS ---
Physician Documentation [facility] Name: Aura Mcintyre Age: 28 yrs Sex: Female : 1995 Arrival Date: 05/25/2023 Time: 23:11 Bed 14 Private MD: ED Physician Cassie Rothman HPI: 05/26 00:25 This 28 yrs old Female presents to ER via Ambulatory with complaints of Abdominal Pain, cp Nausea/Vomiting. 00:25 The patient presents with abdominal pain in the lower abdomen. Onset: The cp symptoms/episode began/occurred 2 week(s) ago, and became worse yesterday. 00:25 Associated signs and symptoms: Pertinent positives: nausea and vomiting, anorexia, cp constipation, Pertinent negatives: diarrhea, dysuria, fever, vaginal discharge, vomiting blood. 00:25 Severity of pain: in the emergency department the pain is unchanged despite home cp interventions. 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 - Social history:: Smoking status: Patient denies any tobacco usage or history of. ROS: 00:30 Constitutional: Negative for body aches, chills, fever, poor PO intake, cp 00:30 Eyes: Negative for injury, pain, redness, and discharge, cp 00:30 ENT: Negative for drainage from ear(s), ear pain, sore throat, difficulty swallowing, difficulty handling secretions, 00:30 Cardiovascular: Negative for chest pain, palpitations, 00:30 Respiratory: Negative for cough, shortness of breath, wheezing, 00:30 Abdomen/GI: Positive for abdominal pain, nausea and vomiting, constipation, Negative for diarrhea, hematemesis, 00:30 : Negative for hematuria, 00:30 Neuro: Negative for altered mental status, dizziness, headache, weakness, 00:30 All other systems are negative, Exam: 00:35 Constitutional: The patient appears in no acute distress, alert, awake, non-toxic, well cp developed, well nourished, uncomfortable, 00:35 Head/Face: Normocephalic, atraumatic. cp 00:35 Eyes: Periorbital structures: appear normal, Conjunctiva: normal, no exudate, no injection, Sclera: no appreciated abnormality, Lids and lashes: appear normal, bilaterally, 00:35 ENT: External ear(s): are unremarkable, Nose: is normal, Mouth: Lips: moist, Oral mucosa: pink and intact, moist, Posterior pharynx: is normal, airway is patent, no erythema, no exudate, 00:35 Chest/axilla: Inspection: normal, 00:35 Cardiovascular: Rate: tachycardic, Rhythm: regular, 00:35 Respiratory: the patient does not display signs of respiratory distress, Respirations: normal, no use of accessory muscles, no retractions, labored breathing, is not present, Breath sounds: are clear throughout, no decreased breath sounds, no stridor, no wheezing, 00:35 Abdomen/GI: Inspection: abdomen appears normal, Bowel sounds: active, all quadrants, Palpation: soft, in all quadrants, moderate abdominal tenderness, in the right lower quadrant and left lower quadrant, rebound tenderness, is not appreciated, involuntary guarding, is not appreciated, 00:35 Back: CVA tenderness, is absent, Vital Signs: 00:02 BP 153 / 102; Pulse 107; Resp 20; Temp 98.4; Pulse Ox 100% ; Weight 86.18 kg; Height 5 vc1 ft. 3 in. ; Pain 10/10; 02:00 BP 111 / 73; Pulse 84; Pulse Ox 98% ; vc1 04:00 BP 111 / 77; Pulse 81; Pulse Ox 100% ; vc1 04:30 BP 117 / 77; Pulse 81; Resp 18 S; Pulse Ox 100% on R/A; ha1 06:00 BP 105 / 64; Pulse 85; Resp 18 S; Pulse Ox 100% on R/A; ha1 00:02 Body Mass Index 33.66 (86.18 kg, 160.02 cm) vc1 00:02 Pain Scale: Adult vc1 MDM: 00:02 Patient medically screened. cp 01:00 Differential diagnosis: appendicitis, bowel obstruction, cholecystitis, Cholelithiasis, cp diverticulitis, gastritis, non-specific abd pain, Ovarian Torsion. 04:00 Data reviewed: vital signs, nurses notes, lab test result(s). cp 04:00 Awaiting: CT scan results. Transition of care: After a detail discussion of the cp patient's case, care is transferred to [facility]. 06:31 ED course: CT abdomen/pelvis showed no evidence of acute intra-abdominal or intrapelvic ci pathology. UA, urine hCG pending at this time.. 05/26 00:22 Order name: CBC with Diff; Complete Time: 06:30 cp 05/26 00:22 Order name: CMP; Complete Time: 06:30 cp 05/26 00:22 Order name: Lipase; Complete Time: 06:30 cp 05/26 00:22 Order name: Test, Urine; Complete Time: 07:07 cp 05/26 00:22 Order name: Urinalysis w/ reflexes; Complete Time: 07:07 cp 05/26 00:22 Order name: CT Abd/Pelvis - IV Contrast Only cp 05/26 00:22 Order name: IV Saline Lock; Complete Time: 00:50 cp 05/26 00:22 Order name: Labs collected and sent; Complete Time: 00:50 cp Administered Medications: 00:50 Drug: NS 0.9% IV 1000 ml IV at 1 bolus Per protocol; 1000 mL bolus Route: IV; Rate: 1 vc1 bolus; Site: right antecubital; 06:29 Follow up: Response: No adverse reaction; IV Status: Completed infusion; IV Intake: ha1 1000ml 00:50 Drug: Famotidine IVP 20 mg IVP once; dilute with 10 mL 0.9% NaCl; give over 2 minutes vc1 Route: IVP; Site: right antecubital; 06:29 Follow up: Response: No adverse reaction ha1 00:50 Drug: TORadol - Ketorolac IVP 15 mg IVP once Route: IVP; Site: right antecubital; vc1 00:50 Drug: Ondansetron IVP 4 mg IVP once; over 2 minutes Route: IVP; Site: right antecubital;vc1 06:29 Follow up: Response: No adverse reaction ha1 04:24 Drug: morphine IVP or IV 4 mg IVP once over 4 mins Route: IVP; Infused Over: 4 mins; vc1 Site: right antecubital; 05:00 Follow up: Response: No adverse reaction; Pain is decreased; RASS: Alert and Calm (0) ha1 Disposition Summary: 05/26/23 06:29 Discharge Ordered Notes: Location: Home ci Condition: Stable ci Diagnosis - Abdominal pain, unspecified ci Followup: ci - With: Private Physician - When: 1 - 2 days - Reason: Recheck today's complaints, Re-evaluation by your physician Discharge Instructions: - Discharge Summary Sheet ci - Abdominal Pain, Adult ci Forms: - Medication Reconciliation Form ci - Thank You Letter ci - Antibiotic Education ci - Prescription Opioid Use ci - Patient Portal Instructions ci - Leadership Thank You Letter ci Prescriptions: - metoclopramide HCl 10 mg Oral tablet - take 1 tablet ORAL route every 6 hours as needed for nausea and vomiting; 20 ci tablet; Refills: 0, Product Selection Permitted Signatures: Dispatcher [employer] EDMS Gera Naranjo PA PA cp Calcote, Vanessa, RN RN vc1 Cassie Rothman Sarah Maldonado RN ha1
[2023-05-26 06:55] LABS: Specific Gravity > 1.035 (1.005-1.030)
[2023-05-26 06:57] LABS: Urine Bacteria None Seen /HPF (<20); Urine Bilirubin NEGATIVE (Negative); Urine Blood Negative (Negative); Urine Clarity Clear (Clear); Urine Color Yellow (Yellow); Urine Glucose NEGATIVE (Negative); Urine Mucus Slight /HPF (None Seen); Urine Protein TRACE (Negative); Urine RBC None Seen /HPF (None Seen); Urine Urobilinogen Normal (Normal)
[2023-05-26 07:02] LABS: Specific Gravity > 1.035 (1.005-1.030)
[2023-05-26 07:39] VITALS: TEMP 98.4
[2023-05-26 07:41] VITALS: O2SAT 100
[2023-05-26 07:44] VITALS: BP 105/64
--- NOTE | 2023-05-26 15:59 | RAD REPORT ---
EXAM DESCRIPTION: CT - Abdomen Pelvis W Contrast - 05/26/2023 6:[address] abdomen and pelvis with IV contrast CLINICAL HISTORY: 28 years Female abd pain, cramping TECHNIQUE: Axial CT imaging of the abdomen and pelvis was performed following the administration of intravenous contrast.. Oral contrast was not administered. Sagittal and coronal reconstructed image s were then performed. The CT study is performed according to ALARA (as low as reasonably achievabl e) or ALARA/IMAGE GENTLY, with automatic adjustment of mA and/or kV according to patient size. Performed on: 05/26/2023 at 2:48 AM. COMPARISON: 03/16/2019 FINDINGS: Lung bases: The lung bases are clear. The heart is normal in size. Liver: The liver is normal in size and configuration. No focal hepatic abnormalities are identified. Liver attenuation is within normal limits. The hepatic and portal veins are patent. Spleen: The spleen is normal in size, configuration and attenuation. Gallbladder and bile duct: The gallbladder is well distended and unremarkable. There is no biliary ductal dilatation. Pancreas: The pancreas is grossly normal in size and configuration. Adrenal Glands: The adrenal glands are normal in size and configuration. Kidneys: The kidneys are normal in size and configuration. There is no evidence of hydronephrosis. Th ere is no evidence of nephrolithiasis. No definite solid or cystic renal mass lesions are identified. Stomach: There are remote postsurgical changes of the stomach consistent with prior gastric bypass an d/or gastric sleeve. There is no definite hiatal hernia. Bowel: The bowel gas pattern is non specific and non obstructive. There is moderate fecal residue sca ttered throughout the colon. Appendix: The appendix is normal. Free air: There is no evidence of free air. Free fluid: There is no evidence of free fluid. Vasculature: The aorta is normal in caliber and contour. The inferior vena cava is grossly unremarkab le. Lymphadenopathy: No pathologic lymphadenopathy is identified. Bladder: The bladder is well distended and smooth in contour. There is a linear area of increased den sity along the dependent portion of the bladder most likely representing layering contrast. Reproductive: The uterus is grossly within normal limits. An intrauterine device is present in grossl y satisfactory position. The adnexal regions are within normal limits. Bones: No acute osseous abnormalities are identified. Soft tissues: No acute soft tissue abnormalities are identified. There is a tiny fat-containing ventr al umbilical hernia. IMPRESSION: 1. No evidence of acute intra-abdominal or intrapelvic pathology. 2. Remote postsurgical changes of the stomach consistent with prior gastric bypass and/or gastric s leeve. 3. Moderate fecal residue scattered throughout the colon. 4. Intrauterine device present in grossly satisfactory position. 5. Tiny fat-containing ventral umbilical hernia. 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 The interpreting radiologist is fully responsible for the content of the report.
== END 2023-05-26 07:16 | disposition home or self-care (01) ==
LOC: ER 23:11
DX: R10.30 Lower abdominal pain, unspecified (principal); R11.2 Nausea with vomiting, unspecified; R63.0 Anorexia; Z68.33 Body mass index [BMI] 33.0-33.9, adult; K59.00 Constipation, unspecified; Z88.0 Allergy status to penicillin
CPT/HCPCS: 96361; 85025; 81001; 36415; 81025; 83690; 80053; 74177; 96375; 96374; 99284; Q9967; J2405; J7030